=== PATIENT | female | born 1975 | race Caucasian/White ===

== ENCOUNTER 2019-11-25 15:03 | Emergency (ER) | payer OTHER ==
[~2019-11-25] VITALS: Ht 165.1 cm; Wt 76.7 kg
[2019-11-25 15:27] VITALS: Ht 165.1 cm; Wt 76.7 kg
[2019-11-25 19:02] VITALS: BP 121/62
== END 2019-11-25 19:02 | disposition home or self-care (01) ==
LOC: ED 15:03
DX: S02.2XXA Fracture of nasal bones, initial encounter for closed fracture (principal); S03.2XXA Dislocation of tooth, initial encounter; S09.8XXA Other specified injuries of head, initial encounter; I10 Essential (primary) hypertension; Z90.710 Acquired absence of both cervix and uterus; Z98.890 Other specified postprocedural states; Z85.850 Personal history of malignant neoplasm of thyroid; Z88.1 Allergy status to other antibiotic agents; Z88.2 Allergy status to sulfonamides; V48.5XXA Car driver injured in noncollision transport accident in traffic accident, initial encounter; Y93.I9 Activity, other involving external motion; Y92.488 Other paved roadways as the place of occurrence of the external cause; Y99.8 Other external cause status
CPT/HCPCS: Q0092